=== PATIENT | female | born 1965 | race African-American/Black ===

== ENCOUNTER 2020-10-19 11:06 | Emergency (ER) | payer MEDICARE ==
[~2020-10-19] VITALS: Ht 165.1 cm; Wt 86.0 kg
[2020-10-19] MEDS ORDERED: FLUT9.9S BOTHNSTRLS (13:18)
[2020-10-19] MEDS ORDERED: CIPHCO EACH EAR (13:18)
[2020-10-19] MEDS ORDERED: ACET-2708 PO (13:18)
[2020-10-19] MEDS ORDERED: AMOX-424 PO (13:18)
[2020-10-19] MEDS ORDERED: CETI10TA6 PO (13:18)
[2020-10-19 13:30] VITALS: BP 144/80
== END 2020-10-19 13:43 | disposition home or self-care (01) ==
LOC: ER 11:06
DX: H60.92 Unspecified otitis externa, left ear (principal); R09.81 Nasal congestion; Z88.2 Allergy status to sulfonamides; Z88.6 Allergy status to analgesic agent; Z88.5 Allergy status to narcotic agent; Z79.899 Other long term (current) drug therapy; Z90.10 Acquired absence of unspecified breast and nipple; Z90.710 Acquired absence of both cervix and uterus
CPT/HCPCS: 99283